=== PATIENT | male | born 2000 | race Two or more races ===

== ENCOUNTER 2022-02-26 13:17 | Outpatient (CLI) | payer OTHER ==
[~2022-02-26 13:17] MED LIST: BUPIVACAINE 0.5% PF 10 ML VIAL ONE; TRIAMCINOLONE 40 MG/ML VIAL ONE; iohexoL-240 10 ML VIAL IVP ONE; lidocaine 1% 20 ML MDV ONE
--- NOTE | 2022-02-26 16:41 | XRAY Report ---
PROCEDURE: Inj/Aspiration Major Joint INDICATIONS: RIGHT SHOULDER PAIN FLUORO TIME: 20sec TECHNIQUE: The indications, alternatives, benefits, risks, and complications of the procedure were explained to the patient. Written informed consent was obtained and placed in the chart. The patient was placed in an appropriate position on the fluoroscopy table, and a site was chosen for percutaneous access un breanna fluoroscopic guidance. Local anesthetic was administered using a 1% lidocaine solution. A hypod ermic or spinal needle was then used to access the symptomatic joint. Intra-articular location of th e needle tip was confirmed by injecting a small amount of contrast, followed by steroid administratio n. The needle was then withdrawn, and a bandage applied to the puncture site. FINDINGS: Joint injected: Right shoulder Medications injected: 4 mL of 40 mg/mL Kenalog and 0.5% Ropivacaine mixture. Complications: None. IMPRESSION: Successful fluoroscopically guided administration of steroid and anaesthetic solution into the right shoulder joint. Reviewed by: Steph Vivas MD on 02/26/2022 4:40 PM PDT Approved by: Steph Vivas MD on 02/26/2022 4:40 PM PDT Station ID: [id number]
[2022-02-26] MEDS ORDERED: BUPIVACAINE 0.5% PF 10 ML VIAL IM ONE (17:31)
[2022-02-26] MEDS ORDERED: TRIAMCINOLONE 40 MG/ML VIAL IM ONE (17:31)
[2022-02-26] MEDS ORDERED: lidocaine 1% 20 ML MDV SUBQ ONE (17:33)
[2022-02-26] MEDS ORDERED: iohexoL-240 10 ML VIAL IVP ONE (17:33)
== END 2022-02-26 13:18 | disposition home or self-care (01) ==
LOC: DI 13:17
PROVIDERS: ATTEND Orthopaedic Surgery
DX: M25.311 Other instability, right shoulder (principal); M25.511 Pain in right shoulder
CPT/HCPCS: 20610; 77002; Q9966